=== PATIENT | female | born 1965 | race Caucasian/White ===

== ENCOUNTER → 2017-06-07 | Outpatient (CLI) | payer OTHER ==
[~2017-06-07] VITALS: Ht 167.6 cm; Wt 83.5 kg
[~2017-06-07] MED LIST: CELEXA10 MG PO; CENTRUM SILVER1 EAC4 PO; CLARITIN10 MG PO; IBUPROFEN 800800 M1 PO; NEXIUM40 MG PO; NORVASC5 MG PO; PRILOSEC 20 MG20 MG PO; ZESTRIL10 MG PO
--- NOTE | ~2017-06-07 | S ---
[facility] [address] [place] [address] SURGICAL PATH RPT PROCEDURE Name: LION SERNA Room #: REG [facility]..#: [id number] Admission: 06/07/17 Date of : 69 Discharge: Report #: [id number] Path Case #: [id number] PATHOLOGY REPORT COLLECTION DATE: 06/07/2017 RECEIVED DATE: 06/08/2017 SUBMITTING PHYS: Dr. Vidhi Hoffman OTHER PHYS: Dr. Mert Patiño SPECIMEN(S) RECEIVED: A.Esophagus * * * * * * * * * * * * FINAL DIAGNOSIS: Esophagus, biopsy: - Junctional type columnar mucosa, chronically inflamed. - Negative for intestinal metaplasia. PATHOLOGIST: Adarsh Bronson M.D. REPORT ELECTRONICALLY SIGNED BY: Adarsh Bronson M.D. DATE/TIME: 06/11/2017 10:54 * * * * * * * * * * * * GROSS PATHOLOGY: The specimen is received in formalin, labeled "[place], [place], esophagus rule out Whitehead's" and consists of 2 rich mucosal biopsies, 0.3 cm. Totally submitted as A1. (AMIE; 06/08/2017) CLINICAL HISTORY: Abdominal pain, reflux, rule out Whitehead's INITIAL CPT CODE(S): A; 40696 Professional services performed by [facility] at [facility] [address], [place] [address] Technical services performed by [facility] at [address] [place] [address], [address] [place] [address]. [facility] [address] [place] [address] SURGICAL PATH RPT PROCEDURE Name: LION SERNA Room #: REG SHANNON Thorpe#: [id number] Admission: 06/07/17 Date of : 69 Discharge: Report #: [id number] Path Case #: [id number] [place] [address] PHONE: [phone] DIRECTOR: Maverick Doan M.D. * * * END OF REPORT * * *
--- NOTE | ~2017-06-07 | P ---
[facility] [place] [address] PROCEDURE REPORT Name: LION SERNA Room #: REG Melany Thorpe#: [id number] Admission: 06/07/17 Attend Phys: Vidhi Hoffman DO Discharge: Date of : 69 Report #: [id number] THIS REPORT FOR: //name// CC: Vidhi Patiño MD DATE OF SERVICE: 06/07/2017 She is a patient of Dr. Vidhi Hoffman. PROCEDURE: EGD with biopsies. INDICATION FOR PROCEDURE: This patient has a long history of gastroesophageal reflux, not always well controlled. She is concerned about the possibility of esophageal cancer or Whitehead's esophagus. An EGD is being performed today to evaluate for both of those. She does not have any dysphagia or odynophagia. Informed consent for this procedure was obtained prior to the administration of any medication. The risks of the procedure which include bleeding, perforation, infection, complications of sedation and the possibility I could miss something have been explained to the patient and she has indicated her consent by signing. Propofol was slowly titrated before and during this procedure for patient comfort by the anesthesia service. The iKaazn upper videoscope was introduced through the upper esophageal sphincter and advanced under direct visualization to the descending duodenum. Findings are noted on withdrawal of the scope. The duodenal mucosa appears normal throughout its visualized entirety. The pylorus is normal. Antrum, normal mucosa. Body, normal mucosa. Cardia and fundus, normal mucosa. Retroflex view did not reveal any hiatal hernia. The scope was withdrawn into the esophagus. 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 Biopsies were obtained x 2 from both of these tongues of suspected Whitehead's esophagus. The remaining esophageal mucosa appears normal all the way up into the pharynx. The scope was withdrawn after biopsies were taken from these two tongues of suspected Whitehead's ectopic mucosa. Good hemostasis was noted after those biopsies. The patient tolerated the procedure well. She went to the recovery room in stable condition. IMPRESSION: Normal esophagogastroduodenoscopy to descending duodenum except for two small 1-2 cm tongues of possible ectopic mucosa, rule out Whitehead's esophagus at the level of the Z-line in the distal esophagus. RECOMMENDATIONS: To await the biopsy results. I would recommend she continue proton pump inhibitors. [facility] [address] [place] [address] PROCEDURE REPORT Name: LION SERNA Room #: REG [facility] Ila#: [id number] Admission: 06/07/17 Attend Phys: Vidhi Hoffman DO Discharge: Date of : 69 Report #: [id number] Thank you very much once again for allowing me to participate in her care. <ELECTRONICALLY SIGNED> By: Vidhi Hoffman DO 06/08/17 [id number] Vidhi Hoffman, /nt
== END ==
LOC: GI 10:31
DX: K21.9 Gastro-esophageal reflux disease without esophagitis (principal); F32.9 Major depressive disorder, single episode, unspecified; F41.9 Anxiety disorder, unspecified; Z87.891 Personal history of nicotine dependence; I10 Essential (primary) hypertension; Z98.890 Other specified postprocedural states
CPT/HCPCS: 62110; 62900